=== PATIENT | female | born 1970 | race Caucasian/White ===

== ENCOUNTER → 2016-08-21 | Outpatient (CLI) | payer BC ==
--- NOTE | 2016-08-21 09:00 | US ---
EXAMINATION TYPE: US pelvic complete DATE OF EXAM: 08/21/2016 7:59 AM COMPARISON: No previous CLINICAL HISTORY: 45-year-old female with secondary Amenorrhea N91.1. Patient states she had a perio d in July after 14 months with no periods, 4, para 3, miscarriage 1, history of 3 c-secti ons TECHNIQUE: Transvaginal (TV) and Transabdominal (TA) scanning. Date of LMP: 07/26/2016 FINDINGS: Uterus: Anteverted measuring 7.8 x 3.9 x 4.1 cm. Myometrial heterogeneity and a focal anterior lobul ation along the body/lower uterine segment region measuring 1.7 x 1.4 x 1.9 cm. Endometrial Stripe: 0.9 cm, within normal limits. Right Ovary: 1.8 x 1.0 x 1.4 cm, within normal limits. Left Ovary: not seen No evident adnexal abnormality or cul-de-sac free fluid. IMPRESSION: 1. Myometrial heterogeneity could reflect diffuse small fibroid change or adenomyosis. 2. A 1.9 cm rounded area along the anterior uterine body/lower uterine segment suggestive of a partia lly intramural, partially subserosal fibroid. 3. Endometrial stripe measures 9 mm. 4. Left ovary could not be visualized.
== END ==
LOC: RADUSWWP 07:34
PROVIDERS: ATTEND Obstetrics & Gynecology
DX: R93.8 Abnormal findings on diagnostic imaging of other specified body structures (principal); N91.1 Secondary amenorrhea
CPT/HCPCS: 76830; 76856

== ENCOUNTER 2019-07-03 06:06 | Inpatient (IN) | payer BC ==
[2019-07-03] MEDS ORDERED: SODIUM CHLORIDE 0.9% 1,000 ML IV STA (06:20)
[2019-07-03] MEDS ORDERED: ACETAMINOPHEN TAB 500 MG TAB PO STA (06:30)
[2019-07-03] MEDS ORDERED: KETOROLAC 30 MG/ML 1 ML VIAL IVP STA (06:31)
--- NOTE | 2019-07-03 06:41 | ED ---
Abdominal Pain HPI - General Chief Complaint: Abdominal Pain Stated Complaint: Abd Pain Time Seen by Provider: 07/03/19 06:15 Source: patient, RN notes reviewed Mode of arrival: ambulatory Limitations: no limitations - History of Present Illness Initial Comments: 48-year-old female presents emergency Department chief complaint of lower abdominal pain. Patient states his surgeon has progressively worsened. Patient's had a fever has not taken any recent Tylenol Motrin. Patient denies any prior abdominal surgeries denies any dysuria or hematuria she's had slight nausea one episode of emesis. Patient denies any significant diarrhea consti pation. Patient has had no sick contacts. She denies any URI symptoms. - Related Data Allergies Allergy/AdvReac Type Severity Reaction Status Date / Time No Known Allergies Allergy Verified 07/03/19 06:19 Review of Systems ROS Statement: Those systems with pertinent positive or pertinent negative responses have been documented in the HPI. ROS Other: All systems not noted in ROS Statement are negative. Past Medical History Past Medical History: Thyroid Disorder History of Any Multi-Drug Resistant Organisms: None Reported Past Surgical History: Section Additional Past Surgical History / Comment(s): 3 C-Sections Past Psychological History: No Psychological Hx Reported Smoking Status: Never smoker Past Alcohol Use History: Occasional Past Drug Use History: None Reported General Exam Limitations: no limitations General appearance: alert, in no apparent distress Head exam: Present: atraumatic, normocephalic, normal inspection Eye exam: Present: normal appearance, PERRL, EOMI. Absent: scleral icterus, conjunctival injection, periorbital swelling ENT exam: Present: normal exam, normal oropharynx, mucous membranes moist Neck exam: Present: normal inspection, full ROM. Absent: tenderness, meningismus, lymphadenopathy Respiratory exam: Present: normal lung sounds bilaterally. Absent: respiratory distress, wheezes, rales, rhonchi, stridor Cardiovascular Exam: Present: normal rhythm, tachycardia, normal heart sounds. Absent: systolic murmur, diastolic murmur, rubs, gallop, clicks GI/Abdominal exam: Present: soft, tenderness (Moderate lower abdominal tenderness), normal bowel sounds. Absent: distended, guarding, rebound, rigid Back exam: Absent: CVA tenderness (R), CVA tenderness (L) Neurological exam: Present: alert, oriented X3 Skin exam: Present: warm, dry, intact, normal color. Absent: rash Course Vital Signs 07/03/19 07/03/19 07/03/19 06:16 06:31 06:46 Temperature 100.7 F H 103.2 F H 103.2 F H Pulse Rate 103 H 91 87 Respiratory 20 18 16 Rate Blood Pressure 113/75 116/78 124/84 O2 Sat by Pulse 97 100 100 Oximetry 07/03/19 07/03/19 07:01 07:38 Temperature 103.3 F H 102.1 F H Pulse Rate 99 103 H Respiratory 18 18 Rate Blood Pressure 128/84 121/80 O2 Sat by Pulse 98 100 Oximetry Medical Decision Making - Medical Decision Making I did receive a phone call from Dr. Rey who stated that there is evidence of acute appendicitis with concern of perforation and abscess formation. Patient does have leukocytosis, fever, lactic acidosis at this time patient was started on Zosyn for broad-spectrum antibiotics. Patient was given fluid hydration including fluid bolus, case discussed with Dr. Fox. Patient be taken to OR - Lab Data Result diagrams: 07/03/19 06:35 07/03/19 06:35 Lab Results 07/03/19 07/03/19 07/03/19 Range/Units 06:35 06:35 06:35 WBC 18.4 H (3.8-10.6) k/uL RBC 4.79 (3.80-5.40) m/uL Hgb 13.7 (11.4-16.0) gm/dL Hct 42.0 (34.0-46.0) % MCV 87.8 (80.0-100.0) fL MCH 28.5 (25.0-35.0) pg MCHC 32.5 (31.0-37.0) g/dL RDW 13.2 (11.5-15.5) % Plt Count 254 (150-450) k/uL Neutrophils % 92 % Lymphocytes % 3 % Monocytes % 4 % Eosinophils % 1 % Basophils % 0 % Neutrophils # 16.9 H (1.3-7.7) k/uL Lymphocytes # 0.5 L (1.0-4.8) k/uL Monocytes # 0.7 (0-1.0) k/uL Eosinophils # 0.2 (0-0.7) k/uL Basophils # 0.0 (0-0.2) k/uL Sodium 138 (137-145) mmol/L Potassium 3.8 (3.5-5.1) mmol/L Chloride 105 (98-107) mmol/L Carbon Dioxide 18 L (22-30) mmol/L Anion Gap 15 mmol/L BUN 15 (7-17) mg/dL Creatinine 0.80 (0.52-1.04) mg/dL Est GFR (CKD-EPI)AfAm >90 (>60 ml/min/1.73 sqM) Est GFR (CKD-EPI)NonAf 88 (>60 ml/min/1.73 sqM) Glucose 146 H (74-99) mg/dL Plasma Lactic Acid Sami (0.7-2.0) mmol/L Calcium 9.8 (8.4-10.2) mg/dL Total Bilirubin 1.9 H (0.2-1.3) mg/dL AST 38 H (14-36) U/L ALT 31 (4-34) U/L Alkaline Phosphatase 88 (38-126) U/L Total Protein 8.1 (6.3-8.2) g/dL Albumin 4.5 (3.5-5.0) g/dL Amylase 44 (30-110) U/L Lipase 85 (23-300) U/L Urine Color Urine Appearance (Clear) Urine pH (5.0-8.0) Ur Specific [place] (1.001-1.035) Urine Protein (Negative) Urine Glucose (UA) (Negative) Urine Ketones (Negative) Urine Blood (Negative) Urine Nitrite (Negative) Urine Bilirubin (Negative) Urine Urobilinogen (<2.0) mg/dL Ur Leukocyte Esterase (Negative) Urine RBC (0-5) /hpf Urine WBC (0-5) /hpf Ur Squamous Epith Cells (0-4) /hpf Amorphous Sediment (None) /hpf Urine Bacteria (None) /hpf Urine Mucus (None) /hpf Urine HCG, Qual Not Detected (Not Detectd) 07/03/19 07/03/19 Range/Units 06:35 06:35 WBC (3.8-10.6) k/uL RBC (3.80-5.40) m/uL Hgb (11.4-16.0) gm/dL Hct (34.0-46.0) % MCV (80.0-100.0) fL MCH (25.0-35.0) pg MCHC (31.0-37.0) g/dL RDW (11.5-15.5) % Plt Count (150-450) k/uL Neutrophils % % Lymphocytes % % Monocytes % % Eosinophils % % Basophils % % Neutrophils # (1.3-7.7) k/uL Lymphocytes # (1.0-4.8) k/uL Monocytes # (0-1.0) k/uL Eosinophils # (0-0.7) k/uL Basophils # (0-0.2) k/uL Sodium (137-145) mmol/L Potassium (3.5-5.1) mmol/L Chloride (98-107) mmol/L Carbon Dioxide (22-30) mmol/L Anion Gap mmol/L BUN (7-17) mg/dL Creatinine (0.52-1.04) mg/dL Est GFR (CKD-EPI)AfAm (>60 ml/min/1.73 sqM) Est GFR (CKD-EPI)NonAf (>60 ml/min/1.73 sqM) Glucose (74-99) mg/dL Plasma Lactic Acid Sami 2.2 H* (0.7-2.0) mmol/L Calcium (8.4-10.2) mg/dL Total Bilirubin (0.2-1.3) mg/dL AST (14-36) U/L ALT (4-34) U/L Alkaline Phosphatase (38-126) U/L Total Protein (6.3-8.2) g/dL Albumin (3.5-5.0) g/dL Amylase (30-110) U/L Lipase (23-300) U/L Urine Color Yellow Urine Appearance Cloudy H (Clear) Urine pH 5.5 (5.0-8.0) Ur Specific [place] 1.026 (1.001-1.035) Urine Protein 1+ H (Negative) Urine Glucose (UA) Negative (Negative) Urine Ketones 2+ H (Negative) Urine Blood Moderate H (Negative) Urine Nitrite Negative (Negative) Urine Bilirubin Negative (Negative) Urine Urobilinogen 3.0 (<2.0) mg/dL Ur Leukocyte Esterase Moderate H (Negative) Urine RBC 4 (0-5) /hpf Urine WBC 11 H (0-5) /hpf Ur Squamous Epith Cells 33 H (0-4) /hpf Amorphous Sediment Rare H (None) /hpf Urine Bacteria Rare H (None) /hpf Urine Mucus Moderate H (None) /hpf Urine HCG, Qual (Not Detectd) Disposition Clinical Impression: Acute appendicitis with rupture Disposition: ADMITTED IP TO THIS HOSP Condition: Fair Referrals: Celine Fox MD [Primary Care Provider] - 1-2 days
[2019-07-03 06:44] LABS: Basophils % (A) 0 %; Eosinophils # (A) 0.2 k/uL (0-0.7); Eosinophils % (A) 1 %; HGB 13.7 gm/dL (11.4-16.0); Lymphocytes # (A) 0.5 k/uL (1.0-4.8); Lymphocytes % (A) 3 %; MCH 28.5 pg (25.0-35.0); MCHC 32.5 g/dL (31.0-37.0); MCV 87.8 fL (80.0-100.0); Mean Platelet Volume 8.1; Monocytes # (A) 0.7 k/uL (0-1.0); Monocytes % (A) 4 %; Neutrophils # (A) 16.9 k/uL (1.3-7.7); Neutrophils % (A) 92 %; Platelet Count 254 k/uL (150-450); RBC 4.79 m/uL (3.80-5.40); RDW 13.2 % (11.5-15.5); WBC 18.4 k/uL (3.8-10.6)
[2019-07-03 06:57] LABS: Amorphous Sediment,Urine Rare /hpf; Appearance,Urine Cloudy (Clear); Bacteria,Urine Rare /hpf; Bilirubin,Urine Negative (Negative); Blood,Urine Moderate (Negative); Color,Urine Yellow; Glucose,Urine (UA) Negative (Negative); Ketones,Urine 2+ (Negative); Leukocyte Esterase,Urine Moderate (Negative); Mucus,Urine Moderate /hpf; Nitrite,Urine Negative (Negative); PH, Urine 5.5 (5.0-8.0); Protein,Urine 1+ (Negative); RBC,Urine 4 /hpf (0-5); Specific Gravity,Urine 1.026 (1.001-1.035); Squamous Epithelial Cell,Urine 33 /hpf (0-4); WBC,Urine 11 /hpf (0-5)
[2019-07-03 07:04] LABS: ALT 31 U/L (4-34); African American GFR (CKD) >90 (>60 ml/min/1.73 sqM); Albumin 4.5 g/dL (3.5-5.0); Amylase 44 U/L (30-110); Anion Gap 15 mmol/L; Blood Urea Nitrogen 15 mg/dL (7-17); Calcium 9.8 mg/dL (8.4-10.2); Carbon Dioxide 18 mmol/L (22-30); Chloride 105 mmol/L (98-107); Glucose 146 mg/dL (74-99); Non-African American GFR(CKD) 88 (>60 ml/min/1.73 sqM); Sodium 138 mmol/L (137-145); Total Bilirubin 1.9 mg/dL (0.2-1.3); Total Protein 8.1 g/dL (6.3-8.2)
[2019-07-03 07:07] LABS: AST 38 U/L (14-36); Alkaline Phosphatase 88 U/L (38-126); Potassium 3.8 mmol/L (3.5-5.1)
[2019-07-03] MEDS ORDERED: PIPERACILLIN-TAZOBACTAM 3.375 GM in SODIUM CHLORIDE 0.9% 100 ML IVPB STA (07:50)
--- NOTE | 2019-07-03 07:53 | CT ---
EXAMINATION TYPE: CT abdomen pelvis w con DATE OF EXAM: 07/03/2019 REFERENCE: NONE HISTORY: abdominal pain HISTORY: Lower abdominal pain CT DLP: 688.5 mGy Automated exposure control for dose reduction was used. TECHNIQUE: Helical acquisition through the abdomen and pelvis was obtained following the oral ingesti on of without Oral Contrast and following intravenous administration of 100 mL of Isovue 300. The eric a was reformatted in axial, coronal and sagittal projections. FINDINGS: There is minimal dependent atelectasis in the dependent portions of the lung bases. There is no pleural or pericardial fluid. The heart is not enlarged. There is a very small sliding hiatal hernia. Within the abdomen, the liver, spleen and gallbladder are unremarkable. Both adrenal glands are normal. 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 The kidneys are otherwise morphologically normal. The pancreas is unremarkable. There is no significant retroperitoneal, iliac or inguinal adenopathy. The uterus and ovaries are unremarkable. There is moderately fluid within the pelvis. There is some thickening of the sigmoid colon. Small col lection of fluid and an air-fluid level in the pelvic fluid collection on the right which I cannot pl tiago with certainty within the bowel. This may represent a developing abscess. The appendix appears th ickened measuring 9.1 mm. There is at least one droplet of air in the tip of the appendix which may o r may not be within the appendix itself. Small bowel loops are normal in caliber. IMPRESSION: I'M SUSPICIOUS THAT THERE IS ACUTE APPENDICITIS WITH RUPTURE THE APPENDIX AND EARLY ABSCESS FORMATION . PLEASE CORRELATE CLINICALLY. THIS REPORT WAS PHONED TO ANA GEE AT TIME OF REPORTING.
[2019-07-03] MEDS ORDERED: NALOXONE 0.4 MG/ML 1 ML VIAL IV PRN (07:57)
[2019-07-03] MEDS ORDERED: ONDANSETRON 4 MG/2 ML VIAL IVP PRN (07:57)
[2019-07-03] MEDS: SODIUM CHLORIDE 0.9% 1,000 ML IV SCH ×2 (08:05→18:45)
[2019-07-03] MEDS: MORPHINE SULFATE 4 MG/ML SYRINGE IV PRN ×3 (09:12→17:55)
--- NOTE | 2019-07-03 10:18 | P.GSHP ---
History of Present Illness H&P Date: 07/03/19 Chief Complaint: Acute appendicitis 48-year-old female presents to the hospital with increasing abdominal pain over the last 36 hours. This is been associated with fevers as well. Pain is diffuse however and exam more tender in the right lower quadrant. White blood cell count elevated. Fever of 103. Mildly tachycardic. CAT scan shows inflammatory changes adjacent to the appendix with air and fluid there as well suspicious for perforated acute appendicitis. Appetite is diminished. No change in bowel habits. No rectal bleeding or melena. - Review of Systems Comment: The patient denies any acute changes in vision or hearing, no dysphagia or odynophagia, no chest pain or shortness of breath, no dysuria or hematuria, no headache, no runny nose, no rectal bleeding or melena, no unexplained weight loss Past Medical History Past Medical History: Thyroid Disorder History of Any Multi-Drug Resistant Organisms: None Reported Past Surgical History: Section Additional Past Surgical History / Comment(s): 3 C-Sections Past Psychological History: No Psychological Hx Reported Smoking Status: Never smoker Past Alcohol Use History: Occasional Past Drug Use History: None Reported Medications and Allergies Home Medications Medication Instructions Recorded Confirmed Type Ibuprofen [Advil] 400 mg PO Q8HR PRN 07/03/19 07/03/19 History Levothyroxine Sodium [Synthroid] 100 mcg PO DAILY 07/03/19 07/03/19 History Allergies Allergy/AdvReac Type Severity Reaction Status Date / Time No Known Allergies Allergy Verified 07/03/19 08:48 Surgical - Exam Vital Signs Temp Pulse Resp BP Pulse Ox 100.7 F H 103 H 20 113/75 97 07/03/19 06:16 07/03/19 06:16 07/03/19 06:16 07/03/19 06:16 07/03/19 06:16 Physical exam: General: Well-developed, well-nourished, appears in mild distress from discomfort HEENT: Normocephalic, sclerae nonicteric Abdomen: Mildly distended, diffuse tenderness increased in the right lower quadrant with peritoneal signs Extremities: No edema Neuro: Alert and oriented Results - Labs 07/03/19 06:35 07/03/19 06:35 Abnormal Lab Results - Last 24 Hours (Table) 07/03/19 07/03/19 07/03/19 Range/Units 06:35 06:35 06:35 WBC 18.4 H (3.8-10.6) k/uL Neutrophils # 16.9 H (1.3-7.7) k/uL Lymphocytes # 0.5 L (1.0-4.8) k/uL Carbon Dioxide 18 L (22-30) mmol/L Glucose 146 H (74-99) mg/dL Plasma Lactic Acid Sami 2.2 H* (0.7-2.0) mmol/L Total Bilirubin 1.9 H (0.2-1.3) mg/dL AST 38 H (14-36) U/L Urine Appearance (Clear) Urine Protein (Negative) Urine Ketones (Negative) Urine Blood (Negative) Ur Leukocyte Esterase (Negative) Urine WBC (0-5) /hpf Ur Squamous Epith Cells (0-4) /hpf Amorphous Sediment (None) /hpf Urine Bacteria (None) /hpf Urine Mucus (None) /hpf 07/03/19 Range/Units 06:35 WBC (3.8-10.6) k/uL Neutrophils # (1.3-7.7) k/uL Lymphocytes # (1.0-4.8) k/uL Carbon Dioxide (22-30) mmol/L Glucose (74-99) mg/dL Plasma Lactic Acid Sami (0.7-2.0) mmol/L Total Bilirubin (0.2-1.3) mg/dL AST (14-36) U/L Urine Appearance Cloudy H (Clear) Urine Protein 1+ H (Negative) Urine Ketones 2+ H (Negative) Urine Blood Moderate H (Negative) Ur Leukocyte Esterase Moderate H (Negative) Urine WBC 11 H (0-5) /hpf Ur Squamous Epith Cells 33 H (0-4) /hpf Amorphous Sediment Rare H (None) /hpf Urine Bacteria Rare H (None) /hpf Urine Mucus Moderate H (None) /hpf Diabetes panel 07/03/19 Range/Units 06:35 Sodium 138 (137-145) mmol/L Potassium 3.8 (3.5-5.1) mmol/L Chloride 105 (98-107) mmol/L Carbon Dioxide 18 L (22-30) mmol/L BUN 15 (7-17) mg/dL Creatinine 0.80 (0.52-1.04) mg/dL Glucose 146 H (74-99) mg/dL Calcium 9.8 (8.4-10.2) mg/dL AST 38 H (14-36) U/L ALT 31 (4-34) U/L Alkaline Phosphatase 88 (38-126) U/L Total Protein 8.1 (6.3-8.2) g/dL Albumin 4.5 (3.5-5.0) g/dL Calcium panel 07/03/19 Range/Units 06:35 Calcium 9.8 (8.4-10.2) mg/dL Albumin 4.5 (3.5-5.0) g/dL Pituitary panel 07/03/19 Range/Units 06:35 Sodium 138 (137-145) mmol/L Potassium 3.8 (3.5-5.1) mmol/L Chloride 105 (98-107) mmol/L Carbon Dioxide 18 L (22-30) mmol/L BUN 15 (7-17) mg/dL Creatinine 0.80 (0.52-1.04) mg/dL Glucose 146 H (74-99) mg/dL Calcium 9.8 (8.4-10.2) mg/dL Adrenal panel 07/03/19 Range/Units 06:35 Sodium 138 (137-145) mmol/L Potassium 3.8 (3.5-5.1) mmol/L Chloride 105 (98-107) mmol/L Carbon Dioxide 18 L (22-30) mmol/L BUN 15 (7-17) mg/dL Creatinine 0.80 (0.52-1.04) mg/dL Glucose 146 H (74-99) mg/dL Calcium 9.8 (8.4-10.2) mg/dL Total Bilirubin 1.9 H (0.2-1.3) mg/dL AST 38 H (14-36) U/L ALT 31 (4-34) U/L Alkaline Phosphatase 88 (38-126) U/L Total Protein 8.1 (6.3-8.2) g/dL Albumin 4.5 (3.5-5.0) g/dL Assessment and Plan (1) Acute appendicitis with rupture Narrative/Plan: Medical services discussed in detail with the patient and her . We'll proceed with laparoscopic appendectomy, possible open appendectomy. Risks of bleeding, infection, leak, abscess, conversion to an open procedure, need for bowel resection, bladder bowel and ureteral injury, hernia reviewed. They understand and wish to proceed. Current Visit: Yes Status: Acute Code(s): K35.32 - ACUTE APPENDICITIS WITH PERF AND LOC PERITONITIS, W/O ABSCS SNOMED Code(s): 43787428
[2019-07-03] MEDS ORDERED: DEXAMETHASONE SOD PHOS (MDV) 100 MG/10 ML VIAL ONE (10:31)
[2019-07-03] MEDS ORDERED: ROCURONIUM BROMIDE 10 MG/ML 10 ML VIAL IV ONE (10:31)
[2019-07-03] MEDS ORDERED: HEPARIN SODIUM,PORCINE 5,000 UNIT/ML 1 ML VIAL ONE (10:31)
[2019-07-03] MEDS ORDERED: PROPOFOL 10 MG/ML 20 ML VIAL IV ONE (10:31)
[2019-07-03] MEDS ORDERED: MIDAZOLAM 2 MG/2 ML VIAL ONE (10:31)
[2019-07-03] MEDS ORDERED: fentaNYL (PF) 50 MCG/ML 2 ML AMP ONE (10:31)
[2019-07-03] MEDS ORDERED: LIDOCAINE 1% INJ 10MG/ML (20 ML MDV) ONE (10:31)
[2019-07-03] MEDS ORDERED: GLYCOPYRROLATE 0.2 MG/ML 2 ML VIAL ONE (10:31)
[2019-07-03] MEDS ORDERED: NEOSTIGMINE 1 MG/ML 10 ML VIAL ONE (10:31)
[2019-07-03] MEDS ORDERED: SUCCINYLCHOLINE CHLORIDE 100 MG/5 ML SYR IV ONE (10:31)
[2019-07-03] MEDS ORDERED: LACTATED RINGERS 1,000 ML IV ONE (10:33)
[2019-07-03] MEDS ORDERED: ceFAZolin 1,000 MG VIAL IVPB ONE (10:49)
[2019-07-03] MEDS ORDERED: BUPIVACAINE (PF) 0.25% 30 ML VIAL SQ ONE ×2 (11:01→11:38)
[2019-07-03] MEDS ORDERED: HYDROmorphone 1 MG/ML 1 ML SYRINGE IVP PRN (12:26)
--- NOTE | 2019-07-03 12:32 | P.OP ---
Date of Procedure: 07/03/19 Procedure(s) Performed: PREOPERATIVE DIAGNOSIS: Ruptured appendicitis POSTOPERATIVE DIAGNOSIS: Same with peritonitis generalized PROCEDURE: Laparoscopic appendectomy SURGEON: Ruddy EBL: 5 mL ANESTHESIA: General COMPLICATIONS: None OPERATIVE PROCEDURE: The patient was brought and placed on the operating table in the supine position. The patient was placed under general anesthesia. The abdomen was prepped and draped in the usual sterile fashion. A small vertical infraumbilical incision was made. The fascia was retracted anteriorly with [place] forceps. The Veress needle was advanced into the peritoneal cavity. The saline drop test was normal. Insufflation took place to 15 mmHg. A 5 mm trocar was then placed. An additional 5 mm suprapubic trocar was placed under direct visualization as well as a 12 mm left lower quadrant trocar under direct visualization. The patient had evidence of diffuse peritonitis with inflammatory changes of the serosa of the small bowel in all 4 quadrants. There was pus present in all 4 quadrants. As we inspected the pelvis I noted that the terminal ileum was adherent to the right pelvic sidewall. Using careful blunt dissection we were able to bring the terminal ileum cecum and appendix into view by retracted superiorly. The appendix was easily identified at that time. The appendix had a perforation 1 cm from the junction to the cecum. A small amount of stool was seen emanating from this opening which was suctioned out. Thankfully the base of the appendix itself was quite viable. The base of the appendix was divided using a linear 45 mm intestinal stapler. The mesentery itself was was then divided using the LigaSure device. The entire abdomen was copiously irrigated with 2 L of saline. No further purulence was seen. A drain was placed in the right hemipelvis extending to the right lower quadrant. This was brought out through the 5 mm suprapubic trocar site. This is sutured to the skin using a 3-0 silk stitch. The appendix was removed using an Endo Catch bag. The fascia at the 12 mm site was closed using a Bony-Alysha [id number] 0 Vicryl stitch. The skin at both trocar sites was closed using 4-0 Monocryl sutures. Skin glue was then applied. DISPOSITION: Stable to recovery room
[2019-07-03] MEDS ORDERED: SODIUM CHLORIDE 0.9% 1,000 ML IV ONE (12:45)
[2019-07-03] MEDS: HEPARIN SODIUM,PORCINE 5,000 UNIT/ML 1 ML VIAL SQ SCH ×2 (13:32→17:18)
[2019-07-03] MEDS: KETOROLAC 30 MG/ML 1 ML VIAL IVP SCH ×2 (13:32→17:19)
[2019-07-03] MEDS: AMPICILLIN-SULBACTAM 3 GM in SODIUM CHLORIDE 0.9% 100 ML IVPB SCH ×2 (15:00→17:56)
--- NOTE | 2019-07-03 23:54 | P.CONS ---
History of Present Illness - Reason for Consult Consult date: 07/03/19 ruptured appendicitis Requesting physician: Og Fox - Chief Complaint abdominal pain x 2 days - History of Present Illness Patient is 48-year female presenting to the ER at [facility] today with a chief complaints of abdominal pain that has been going on for a day and a half patient pain is generalized more of a dull aching to sharp intensity almost 10 out of 10 in severity with associated nausea no significant vomiting or any diarrhea and also fever with chills with the symptom the patient was evaluated by the ER physician on arrival to the ER the patient did have a fever of 103 F patient was tachycardic and did have elevated white count 15.4 lactic acid was 2.2 urine was not significantly positive patient did have a CT of abdominal pelvis we did shows inflammation around the appendix area patient subsequently was taken to the OR and she was noticed to have ruptured appendicitis with diffuse peritonitis patient is status post laparoscopic appendectomy infectious disease was consulted for further recommendation about antibiotic therapy. Review of Systems Positive point has been mentioned in HPI rest of the systems are negative Past Medical History Past Medical History: Thyroid Disorder History of Any Multi-Drug Resistant Organisms: None Reported Past Surgical History: Section Additional Past Surgical History / Comment(s): 3 C-Sections Past Anesthesia/Blood Transfusion Reactions: No Reported Reaction Past Psychological History: No Psychological Hx Reported Smoking Status: Never smoker Past Alcohol Use History: Occasional Past Drug Use History: None Reported - Past Family History Mother Family Medical History: Cancer, Musculoskeletal Disorder Additional Family Medical History / Comment(s): breast CA Medications and Allergies Home Medications Medication Instructions Recorded Confirmed Type Ibuprofen [Advil] 400 mg PO Q8HR PRN 07/03/19 07/03/19 History Levothyroxine Sodium [Synthroid] 100 mcg PO DAILY 07/03/19 07/03/19 History Allergies Allergy/AdvReac Type Severity Reaction Status Date / Time No Known Allergies Allergy Verified 07/03/19 08:48 Physical Exam Vitals: Vital Signs Temp Pulse Pulse Resp BP BP Pulse Ox 07/03/19 20:20 98.7 F 103 H 16 99/64 94 L 07/03/19 16:44 99 108/71 95 07/03/19 14:37 94 104/70 95 07/03/19 14:22 92 106/70 94 L 07/03/19 14:07 100 107/68 94 L 07/03/19 13:52 100 107/71 94 L 07/03/19 13:42 100.3 F H 101 H 14 105/68 93 L 07/03/19 12:35 99 16 100/58 93 L 07/03/19 12:20 95 14 94/60 95 07/03/19 12:05 92 15 101/62 99 07/03/19 11:50 99.8 F H 90 14 95/61 100 07/03/19 09:39 102 H 18 122/84 99 07/03/19 08:51 98.9 F 92 18 120/81 99 07/03/19 07:38 102.1 F H 103 H 18 121/80 100 07/03/19 07:01 103.3 F H 99 18 128/84 98 07/03/19 06:46 103.2 F H 87 16 124/84 100 07/03/19 06:31 103.2 F H 91 18 116/78 100 07/03/19 06:16 100.7 F H 103 H 20 113/75 97 Intake and Output 07/03/19 07/03/19 07/04/19 14:59 22:59 06:59 Intake Total 1050 Output Total 5 45 Balance 1045 -45 Intake: IV 1050 Output: Drainage 45 Abdomen 45 Estimated Blood Loss 5 Other: Weight 64.864 kg GENERAL DESCRIPTION: Middle-aged female lying in bed, no distress. No tachypnea or accessory muscle of respiration use. HEENT: Shows Pallor , no scleral icterus. Oral mucous membrane is dry. NECK: Trachea central, no thyromegaly. LUNGS: Unlabored breathing. Clear to auscultation anteriorly. No wheeze or crackle. HEART: S1, S2, regular rate and rhythm. ABDOMEN: Soft, mild right-sided tenderness , no guarding or rigidity EXTREMITIES: No edema of feet. SKIN: No rash, no masses palpable. NEUROLOGICAL: The patient is awake, alert, oriented x3, mood and affect normal. Results CBC & Chem 7: 07/03/19 06:35 07/03/19 06:35 Labs: Abnormal Lab Results - Last 24 Hours (Table) 07/03/19 07/03/19 07/03/19 Range/Units 06:35 06:35 06:35 WBC 18.4 H (3.8-10.6) k/uL Neutrophils # 16.9 H (1.3-7.7) k/uL Lymphocytes # 0.5 L (1.0-4.8) k/uL Carbon Dioxide 18 L (22-30) mmol/L Glucose 146 H (74-99) mg/dL Plasma Lactic Acid Sami 2.2 H* (0.7-2.0) mmol/L Total Bilirubin 1.9 H (0.2-1.3) mg/dL AST 38 H (14-36) U/L Urine Appearance (Clear) Urine Protein (Negative) Urine Ketones (Negative) Urine Blood (Negative) Ur Leukocyte Esterase (Negative) Urine WBC (0-5) /hpf Ur Squamous Epith Cells (0-4) /hpf Amorphous Sediment (None) /hpf Urine Bacteria (None) /hpf Urine Mucus (None) /hpf 07/03/19 Range/Units 06:35 WBC (3.8-10.6) k/uL Neutrophils # (1.3-7.7) k/uL Lymphocytes # (1.0-4.8) k/uL Carbon Dioxide (22-30) mmol/L Glucose (74-99) mg/dL Plasma Lactic Acid Sami (0.7-2.0) mmol/L Total Bilirubin (0.2-1.3) mg/dL AST (14-36) U/L Urine Appearance Cloudy H (Clear) Urine Protein 1+ H (Negative) Urine Ketones 2+ H (Negative) Urine Blood Moderate H (Negative) Ur Leukocyte Esterase Moderate H (Negative) Urine WBC 11 H (0-5) /hpf Ur Squamous Epith Cells 33 H (0-4) /hpf Amorphous Sediment Rare H (None) /hpf Urine Bacteria Rare H (None) /hpf Urine Mucus Moderate H (None) /hpf Microbiology - Last 24 Hours (Table) 07/03/19 06:35 Urine Culture - Preliminary Urine,Voided Assessment and Plan Assessment: patient admitted hospital with sepsis this patient noted a fever tachycardia e levated white count-source is acute ruptured appendicitis with a component of second peritonitis will need to cover for enteric gram-negative both aerobes and anaerobes in this patient with no history of recent antibiotic exposure more likely will be dealing with the sensitive gram-negative pathogen such as E. coli and related gerson (1) Sepsis Current Visit: Yes Status: Acute Code(s): A41.9 - SEPSIS, UNSPECIFIED ORGANISM SNOMED Code(s): 30666709 (2) Acute appendicitis with rupture Current Visit: Yes Status: Acute Code(s): K35.32 - ACUTE APPENDICITIS WITH PERF AND LOC PERITONITIS, W/O ABSCS SNOMED Code(s): 95742209 Plan: 1-Unasyn 3 g every 6 hours 2-gentle IV fluid We will follow on clinical condition and cultures to further adjust medication if needed Thank you for this consultation we will follow the patient along with you Time with Patient: Greater than 30
[2019-07-04] MEDS: KETOROLAC 30 MG/ML 1 ML VIAL IVP SCH ×4 (00:33→17:30)
[2019-07-04] MEDS: HEPARIN SODIUM,PORCINE 5,000 UNIT/ML 1 ML VIAL SQ SCH ×3 (00:34→17:32)
[2019-07-04] MEDS: SODIUM CHLORIDE 0.9% 1,000 ML IV SCH ×3 (00:34→23:56)
[2019-07-04] MEDS: AMPICILLIN-SULBACTAM 3 GM in SODIUM CHLORIDE 0.9% 100 ML IVPB SCH ×4 (01:30→17:32)
[2019-07-04] MEDS: LEVOTHYROXINE 100 MCG TAB PO SCH (05:47)
[2019-07-04 06:44] LABS: Basophils % (A) 0 %; Eosinophils % (A) 0 %; HGB 10.9 gm/dL (11.4-16.0); Lymphocytes # (A) 0.7 k/uL (1.0-4.8); Lymphocytes % (A) 6 %; MCH 28.5 pg (25.0-35.0); MCV 89.3 fL (80.0-100.0); Mean Platelet Volume 8.7; Monocytes # (A) 0.5 k/uL (0-1.0); Monocytes % (A) 4 %; Neutrophils # (A) 10.3 k/uL (1.3-7.7); Neutrophils % (A) 89 %; Platelet Count 201 k/uL (150-450); RDW 13.2 % (11.5-15.5); WBC 11.6 k/uL (3.8-10.6)
[2019-07-04] MEDS: MORPHINE SULFATE 4 MG/ML SYRINGE IV PRN ×2 (07:17→16:21)
--- NOTE | 2019-07-04 10:17 | P.PN ---
Subjective Progress Note Date: 07/04/19 Principal diagnosis: Acute appendicitis with perforation and generalized peritonitis Patient did fairly well overnight. T-max 100.3. Pain is down to about a 4-5 out of 10. White blood cell count 11.6. Lactic acid normalized. Objective - Vital Signs Vital signs: Vital Signs Temp 98.5 F 07/04/19 07:00 Pulse 92 07/04/19 07:00 Resp 17 07/04/19 07:00 BP 97/60 07/04/19 07:00 Pulse Ox 98 07/04/19 07:00 Intake & Output 07/03/19 07/04/19 07/04/19 18:59 06:59 18:59 Intake Total 1050 1180 Output Total 50 Balance 1000 1180 Weight 64.864 kg Intake: IV 1050 Oral 1180 Output: Drainage 45 Abdomen 45 Estimated Blood Loss 5 Other: # Voids 2 - Exam Abdomen: Soft, mild distention, mild tenderness diffusely, VAIBHAV drain seropurulent - Labs CBC & Chem 7: 07/04/19 06:15 07/03/19 06:35 Labs: Abnormal Lab Results - Last 24 Hours (Table) 07/04/19 Range/Units 06:15 WBC 11.6 H (3.8-10.6) k/uL Hgb 10.9 L (11.4-16.0) gm/dL Neutrophils # 10.3 H (1.3-7.7) k/uL Lymphocytes # 0.7 L (1.0-4.8) k/uL Microbiology - Last 24 Hours (Table) 07/03/19 06:35 Blood Culture - Preliminary Blood No Growth after 24 hours 07/03/19 06:35 Urine Culture - Preliminary Urine,Voided Assessment and Plan (1) Acute appendicitis with rupture Narrative/Plan: Continue antibiotics per infectious disease. Ambulate. Gradually advance diet. Keep drain in place. Current Visit: Yes Status: Acute Code(s): K35.32 - ACUTE APPENDICITIS WITH PERF AND LOC PERITONITIS, W/O ABSCS SNOMED Code(s): 11028183
[2019-07-04] MEDS: HYDROcodone/APAP 5-325MG 1 EACH TAB PO PRN (20:40)
--- NOTE | 2019-07-04 20:55 | PN ---
PROGRESS NOTE DATE OF SERVICE: 07/04/2019. REASON FOR FOLLOWUP: Acute perforated appendicitis with secondary peritonitis. INTERVAL HISTORY: The patient is currently afebrile. Patient has been breathing comfortably. The patient denies having any chest pain, shortness of breath or cough. Abdominal pain is currently improved. Tolerating full liquid diet. No nausea, vomiting. No diarrhea. Rather the patient has had no bowel movement. PHYSICAL EXAMINATION: Blood pressure is 97/60 with a pulse of 92, temperature 98.5. She is 98% on room air. General description is a middle-aged female, lying in bed in no distress. Respiratory system: Unlabored breathing. Clear to auscultation anteriorly. Heart S1, S2 regular rate and rhythm. ABDOMEN: Soft, no tenderness. EXTREMITIES: No edema of the feet. LABS: Hemoglobin is 10.2, white count 11.6, creatinine 0.8. Blood culture has been negative. DIAGNOSTIC IMPRESSION/PLAN: Patient with admitted to the Hospital with abdominal pain in this patient who did have a component of secondary peritonitis from perforated appendicitis. Patient is currently covered with Unasyn; to continue. White count showed a downward trend and we will monitor clinical course closely. Family at the bedside. Questions were answered. MMODL / IJN: [id number] /
[2019-07-05] MEDS: AMPICILLIN-SULBACTAM 3 GM in SODIUM CHLORIDE 0.9% 100 ML IVPB SCH ×5 (00:01→23:44)
[2019-07-05] MEDS: KETOROLAC 30 MG/ML 1 ML VIAL IVP SCH ×2 (00:02→06:20)
[2019-07-05] MEDS: HEPARIN SODIUM,PORCINE 5,000 UNIT/ML 1 ML VIAL SQ SCH ×4 (00:02→23:43)
[2019-07-05] MEDS: LEVOTHYROXINE 100 MCG TAB PO SCH (06:26)
[2019-07-05] MEDS: SODIUM CHLORIDE 0.9% 1,000 ML IV SCH ×2 (08:56→19:50)
[2019-07-05 10:59] LABS: Basophils % (A) 0 %; Eosinophils # (A) 0.1 k/uL (0-0.7); Eosinophils % (A) 1 %; HCT 31.5 % (34.0-46.0); Lymphocytes # (A) 0.6 k/uL (1.0-4.8); Lymphocytes % (A) 9 %; MCH 28.3 pg (25.0-35.0); MCHC 31.7 g/dL (31.0-37.0); MCV 89.3 fL (80.0-100.0); Mean Platelet Volume 8.8; Monocytes # (A) 0.4 k/uL (0-1.0); Monocytes % (A) 6 %; Neutrophils # (A) 5.6 k/uL (1.3-7.7); Neutrophils % (A) 83 %; Platelet Count 185 k/uL (150-450); RBC 3.52 m/uL (3.80-5.40); WBC 6.7 k/uL (3.8-10.6)
[2019-07-05] MEDS: HYDROcodone/APAP 5-325MG 1 EACH TAB PO PRN (11:13)
--- NOTE | 2019-07-05 12:24 | P.PN ---
<Nichol Abreu Gadiel - Last Filed: 07/05/19 12:17> Subjective Progress Note Date: 07/05/19 CHIEF COMPLAINT: abdominal pain HISTORY OF PRESENT ILLNESS: patient is status post laparoscopic appendectomy secondary to ruptured appendicitis with peritonitis. Postop day #2. Patient examined this morning at the bedside. She reports eating eggs this morning and experienced increased abdominal pain afterwards. She denies nausea or vomiting. She has been passing flatus. Denies having a bowel movement. She has been ambulating in the hallway. WBC 6.7 PHYSICAL EXAM: VITAL SIGNS: Reviewed. GENERAL: Well-developed in no acute distress. HEENT: No sclera icterus. Extraocular movements grossly intact. Moist buccal mucosa. Head is atraumatic, normocephalic. ABDOMEN: Soft. Nondistended. Appropriate surgical tenderness. VAIBHAV to left lower quadrant with seropurulent drainage. NEUROLOGIC: Alert and oriented. Cranial nerves II through XII grossly intact. ASSESSMENT: 1. Ruptured appendicitis with peritonitis PLAN: 1. Continue IV antibiotics. Dr. Riley following 2. Pain control 3. Incentive spirometer 4. Activity as tolerated 5. Patient with increased pain this morning. Will re-evaluate patient this afternoon. Likely discharge home tomorrow. Nurse practitioner note has been reviewed by physician. Signing provider agrees with the documented findings, assessment, and plan of care. Objective - Vital Signs Vital signs: Vital Signs Temp 98.3 F 07/05/19 07:00 Pulse 90 07/05/19 07:00 Resp 12 07/05/19 07:00 BP 130/83 07/05/19 07:00 Pulse Ox 99 07/05/19 07:00 Intake & Output 07/04/19 07/05/19 07/05/19 18:59 06:59 18:59 Intake Total 40 Output Total 25 30 Balance -25 40 -30 Intake: Oral 40 Output: Drainage 25 30 Abdomen 25 30 Other: Voiding Method Toilet # Voids 2 1 - Labs CBC & Chem 7: 07/05/19 10:41 07/03/19 06:35 Labs: Abnormal Lab Results - Last 24 Hours (Table) 07/05/19 Range/Units 10:41 RBC 3.52 L (3.80-5.40) m/uL Hgb 10.0 L (11.4-16.0) gm/dL Hct 31.5 L (34.0-46.0) % Lymphocytes # 0.6 L (1.0-4.8) k/uL Microbiology - Last 24 Hours (Table) 07/03/19 06:35 Blood Culture - Preliminary Blood No Growth after 48 hours 07/03/19 06:35 Urine Culture - Final Urine,Voided <Og Fox - Last Filed: 07/05/19 16:58> Subjective As above. Patient doing well. Did have a fever of 100.5 last night. Was feeling nauseated this morning. Pain is improved. VAIBHAV more serious. Plan discharge in a.m. if afebrile. Increase diet. Objective - Vital Signs Vital signs: Vital Signs Temp 98.4 F 07/05/19 15:00 Pulse 69 07/05/19 15:00 Resp 12 07/05/19 15:00 BP 117/77 07/05/19 15:00 Pulse Ox 90 L 07/05/19 15:00 Intake & Output 07/04/19 07/05/19 07/05/19 18:59 06:59 18:59 Intake Total 40 500 Output Total 25 70 Balance -25 40 430 Intake: Oral 40 500 Output: Drainage 25 70 Abdomen 25 70 Other: Voiding Method Toilet # Voids 2 1 2 - Labs CBC & Chem 7: 07/05/19 10:41 07/03/19 06:35 Labs: Abnormal Lab Results - Last 24 Hours (Table) 07/05/19 Range/Units 10:41 RBC 3.52 L (3.80-5.40) m/uL Hgb 10.0 L (11.4-16.0) gm/dL Hct 31.5 L (34.0-46.0) % Lymphocytes # 0.6 L (1.0-4.8) k/uL Microbiology - Last 24 Hours (Table) 07/03/19 06:35 Blood Culture - Preliminary Blood No Growth after 48 hours Assessment and Plan (1) Acute appendicitis with rupture Current Visit: Yes Status: Acute Code(s): K35.32 - ACUTE APPENDICITIS WITH PERF AND LOC PERITONITIS, W/O ABSCS SNOMED Code(s): 12097369
--- NOTE | 2019-07-05 13:39 | CDI ---
Documentation Clarification Form Date: 07/05/2019 CDS: Chanel Nichole, CCS, CCDS Admit Date: 07/03/2019 Patient Name: Steff Kerr Discharge Date: ATTENTION: The Clinical Documentation Specialists (CDI) and [facility] Coding Staff appreciate your assistance in clarifying documentation. Please respond to the clarification below the line at the bottom and electronically sign. The CDI & [facility] Coding staff will review the response and follow-up if needed. Please note: Queries are made part of the Legal Health Record. If you have any questions, please contact the author of this message via ITS. Dear Dr. Og Fox: The patient presented with the following: right lower quadrant abdominal pain, diagnosed with acute ruptured appendicitis & generalized peritonitis. History/Risk Factors: Hypothyroidism, previous C Section Clinical Indicators: Presented as above. Per the Infectious Disease consult: Sepsis is documented. VS: T 100.7^-103.2^, P 103^, R 20, BP 113/75, PO 97 RA LAB: WBC 18.4^, Neut 16.9^, Lactic Acid 2.2^^ UA: cloudy, 1+ prot, 2+ ket, moderate blood, moderate esterase, WBC 11^. Treatment: IV fluid boluses, IV Toradol, IV Zosyn, IV Ms, IV Zofran, IV fluid rate 100, IV Cefazolin, IV Dilaudid, IV Ampicillin In your professional opinion, please clarify if these findings signify one of the following conditions, whether the condition is POA, and cause, if known: Sepsis ruled out Sepsis ruled in: Yes Other, please specify Unable to determine Present on Admission Yes (Last Revision: September 2017) MTDD
[2019-07-05] MEDS ORDERED: ACETAMINOPHEN TAB 325 MG TAB PO PRN (19:39)
--- NOTE | 2019-07-05 22:25 | PN ---
PROGRESS NOTE DATE OF SERVICE: 07/05/2019 REASON FOR FOLLOWUP: Ruptured appendicitis with secondary peritonitis. INTERVAL HISTORY: The patient did spike a fever last night of 100.6 to 100.4. The patient has been afebrile since then. The patient overall is feeling better, breathing comfortably. No nausea, no vomiting. No chest pain, shortness of breath or cough. Abdominal pain is currently controlled. She has been passing gas but did not have any bowel movement. PHYSICAL EXAMINATION: Blood pressure is 117/77 with a pulse of 69, temperature 98.4. She is 98% on room air. General description is a middle-aged female lying in bed in no distress. RESPIRATORY SYSTEM: Unlabored breathing. Clear to auscultation anteriorly. HEART: S1, S2. Regular rate and rhythm. ABDOMEN: Soft. Minimally tender. No guarding or rigidity. EXTREMITIES: No edema of the feet. LABS: Hemoglobin is 10, white count 6.7. Blood culture has been negative. DIAGNOSTIC IMPRESSION AND PLAN: Patient with secondary peritonitis from perforated appendicitis, status post laparoscopic appendectomy. The patient did have a low-grade fever last night; however, that has resolved. The patient is currently covered with Unasyn; to continue. If the patient remains afebrile and oral intake is improved, to finish therapy with oral Augmentin and monitor clinical course closely. MMODL / IJN: [id number] /
[2019-07-06 01:10] VITALS: TEMP 98.4
[2019-07-06] MEDS: AMPICILLIN-SULBACTAM 3 GM in SODIUM CHLORIDE 0.9% 100 ML IVPB SCH (05:37)
[2019-07-06] MEDS: SODIUM CHLORIDE 0.9% 1,000 ML IV SCH (05:37)
[2019-07-06] MEDS: LEVOTHYROXINE 100 MCG TAB PO SCH (05:37)
[2019-07-06 07:45] LABS: Basophils % (A) 1 %; Eosinophils # (A) 0.1 k/uL (0-0.7); Eosinophils % (A) 2 %; HCT 30.4 % (34.0-46.0); HGB 9.8 gm/dL (11.4-16.0); Lymphocytes # (A) 0.6 k/uL (1.0-4.8); Lymphocytes % (A) 10 %; MCH 28.8 pg (25.0-35.0); MCHC 32.3 g/dL (31.0-37.0); MCV 89.1 fL (80.0-100.0); Mean Platelet Volume 8.8; Monocytes # (A) 0.4 k/uL (0-1.0); Monocytes % (A) 7 %; Neutrophils # (A) 4.9 k/uL (1.3-7.7); Neutrophils % (A) 79 %; Platelet Count 212 k/uL (150-450); RBC 3.41 m/uL (3.80-5.40); WBC 6.2 k/uL (3.8-10.6)
[2019-07-06 08:04] VITALS: BP 128/77; PULSE 77; RESP 16
[2019-07-06] MEDS: HEPARIN SODIUM,PORCINE 5,000 UNIT/ML 1 ML VIAL SQ SCH (08:13)
--- NOTE | 2019-07-06 11:13 | P.DS ---
Providers Date of admission: 07/03/19 08:00 Expected date of discharge: 07/06/19 Attending physician: Og Fox Consults: 07/03/19 12:26 Consult Physician Routine Consulting Provider: Jai Riley Consult Reason/Comments: Ruptured appendicitis with peritonitis Do you want consulting provider notified?: Yes Primary care physician: Celine Fox Hospital Course: 48-year-old who presented to the emergency room with abdominal pain. Patient was found to have acute appendicitis. She underwent laparoscopic appendectomy secondary to ruptured appendicitis with peritonitis. Patient is doing well postoperatively without any immediate complications. She is tolerating diet without nausea or vomiting. Pain is controlled on oral medications. WBC is within normal limits. She was evaluated by infectious disease during hospitalization. VAIBHAV drain discontinued prior to discharge. She was deemed stable for discharge home today on oral antibiotics per infectious disease recommendations. Please see EMR for further hospital course he tells. DC Diagnosis 1. Acute ruptured appendicitis with peritonitis Nurse practitioner note has been reviewed by physician. Signing provider agrees with the documented findings, assessment, and plan of care. Patient Condition at Discharge: Stable Plan - Discharge Summary Discharge Rx Participant: No New Discharge Prescriptions: New Hydrocodone/Acetaminophen [Dexter 5-325] 1 tab PO Q6HR PRN 3 Days #12 tab PRN Reason: Pain Amoxic-Pot Clav 875-125Mg [Augmentin 875-125] 1 tab PO Q12HR #20 tablet No Action Levothyroxine Sodium [Synthroid] 100 mcg PO DAILY Ibuprofen [Advil] 400 mg PO Q8HR PRN PRN Reason: Pain Discharge Medication List Ibuprofen [Advil] 400 mg PO Q8HR PRN 07/03/19 [History] Levothyroxine Sodium [Synthroid] 100 mcg PO DAILY 07/03/19 [History] Amoxic-Pot Clav 875-125Mg [Augmentin 875-125] 1 tab PO Q12HR #20 tablet 07/06/19 [Rx] Hydrocodone/Acetaminophen [Dexter 5-325] 1 tab PO Q6HR PRN 3 Days #12 tab 07/06/19 [Rx] Follow up Appointment(s)/Referral(s): Og Fox MD [Medical Doctor] - 1 Week Celine Fox MD [Primary Care Provider] - 1-2 days Jai Riley MD [STAFF PHYSICIAN] - 1 Week Activity/Diet/Wound Care/Special Instructions: No driving while taking Dexter No lifting over 10 pounds You may shower. No soaking or tub baths Very light activity until you are reevaluated at your follow up appointment with your surgeon
--- NOTE | 2019-07-07 06:19 | PN ---
PROGRESS NOTE DATE OF SERVICE: 07/06/2019 REASON FOR FOLLOWUP: Secondary peritonitis from perforated appendicitis. INTERVAL HISTORY: The patient was seen on rounds this morning. The patient has been afebrile, breathing comfortably. Denies having any chest pain, shortness of breath, or cough. No nausea, no vomiting. Abdominal pain has improved. Did have bowel movement. PHYSICAL EXAMINATION: Blood pressure is 128/77 with a pulse of 77, temperature 98.4. She is 98% on room air. General description is a middle-aged female up in the bed in no distress. RESPIRATORY SYSTEM: Unlabored breathing. Clear to auscultation anteriorly. HEART: S1, S2. Regular rate and rhythm. ABDOMEN: Soft, tenderness. LABS: Hemoglobin 9.8, white count 6.2. Blood culture has been negative. DIAGNOSTIC IMPRESSION AND PLAN: Patient with secondary peritonitis from perforated appendicitis, status post laparoscopic appendectomy. The patient has shown overall clinical improvement. She will finish therapy with oral Augmentin 875 mg b.i.d. times 10 days. Prescription was sent to the pharmacy. MMODL / IJN: [id number] /
== END 2019-07-06 11:51 | disposition home or self-care (01) | DRG 854 ==
LOC: EC 06:06 → 4SSUR 08:00
PROVIDERS: ADMIT Surgery; ATTEND Surgery
PROC: 0DTJ4ZZ Resection of Appendix, Percutaneous Endoscopic Approach (ICD-10-PCS; principal; 2019-07-03 11:00)
DX: A41.9 Sepsis, unspecified organism (principal); K35.20 Acute appendicitis with generalized peritonitis, without abscess; E87.2 Acidosis; Z79.890 Hormone replacement therapy; Z80.3 Family history of malignant neoplasm of breast; E07.9 Disorder of thyroid, unspecified
CPT/HCPCS: 36415; 74177; 80053; 81001; 81025; 82150; 83605; 83690; 85025; 87040; 87086; 88304; 96361; 96365; 96375; 99285

== ENCOUNTER → 2020-07-26 | Outpatient (CLI) | payer BC ==
--- NOTE | 2020-07-28 13:31 | MM ---
Reason for exam: screening (asymptomatic). Last mammogram was performed 7 years and 7 months ago. History: Family history of breast cancer in mother at age 62. Taking hormonal contraceptives for 15 years beginning at age 21. Physical Findings: A clinical breast exam by your physician is recommended on an annual basis and results should be correlated with mammographic findings. MG Screening Mammo w CAD Bilateral CC and MLO view(s) were taken. No prior studies available for comparison. The breast tissue is extremely dense which could obscure a lesion on mammography. There is no discrete abnormality. ASSESSMENT: Negative, BI-RAD 1 RECOMMENDATION: Routine screening mammogram of both breasts in 1 year.
== END | disposition home or self-care (01) ==
LOC: RADMAMWWP 16:18
PROVIDERS: ATTEND Family Medicine
DX: Z12.31 Encounter for screening mammogram for malignant neoplasm of breast (principal)
CPT/HCPCS: 77067

== ENCOUNTER → 2023-06-02 | Outpatient (CLI) | payer BC ==
--- NOTE | 2023-06-03 21:06 | MM ---
Reason for Exam: Screening (asymptomatic). Last mammogram was performed 2 year(s) and 10 month(s) ago. Patient History: Menarche at age 13. First Full-Term at age 30. Postmenopausal. Currently using Hormonal Contraceptives, beginning at age 21 for 15 years. Mother had breast cancer, age 62. Risk Values: Zo 5 year model risk: 2.0%. NCI Lifetime model risk: 16.6%. Prior Study Comparison: 09/18/2007 Bilateral Screening Mammogram, [facility]. 12/31/2012 Bilateral Screening Mammogram, [facility]. 07/26/2020 Bilateral Screening Mammogram, [facility]. Tissue Density: The breast tissue is heterogeneously dense. This may lower the sensitivity of mammography. Findings: Analyzed By CAD. There is no suspicious group of microcalcifications or new suspicious mass in either breast. Overall Assessment: Negative, BI-RAD 1 Management: Screening Mammogram of both breasts in 1 year. . Patient should continue monthly self-breast exams. A clinical breast exam by your physician is recommended on an annual basis. This exam should not preclude additional follow-up of suspicious palpable abnormalities. Note on Zo scores and lifetime risk: 1. A Zo score greater than 3% is considered moderate risk. If this is the case, consider specialist referral to assess eligibility for a risk reducing agent. 2. If overall lifetime risk for the development of breast cancer is 20% or higher, the patient may qualify for future screening with alternating mammogram and breast MRI. Electronically signed and approved by: Geovanna Gayle M.D. Radiologist
== END | disposition home or self-care (01) ==
LOC: RADMAMWWP 16:53
PROVIDERS: ATTEND Family Medicine
DX: Z12.31 Encounter for screening mammogram for malignant neoplasm of breast (principal); Z78.0 Asymptomatic menopausal state; Z80.3 Family history of malignant neoplasm of breast
CPT/HCPCS: 77067

== ENCOUNTER → 2024-06-04 | Outpatient (CLI) | payer BC ==
--- NOTE | 2024-06-05 00:06 | BD ---
EXAMINATION TYPE: Axial Bone Density DATE OF EXAM: 06/04/2024 CLINICAL HISTORY: 53 years old Female. ICD-10 CODE: Z78.0 ASYMPTOMATIC MENOPAUSAL STA , Additional History: Height: 66 Weight: 133.4 FRAX RISK QUESTIONS: Alcohol (3 or more units per day): no Family History (Parent hip fracture): no Glucocorticoids (More than 3mos): no (Ex: prednisone, prednisolone, methylprednisolone, dexamethasone, and hydrocortisone). History of Fracture in Adulthood: no Secondary Osteoporosis: 1. Type 1 Diabetes: no 2. Hyperthyroidism: no 3. Menopause before 45: yes 4. Malnutrition: no 5. Chronic liver disease: no Rheumatoid Arthritis: no Current Tobacco Use: no RISK FACTORS HISTORY OF: Hip Fracture (Right/Left): no Spine Fracture: no History of Wrist Fracture: no Surgery to Spine/Hip(right/left)/Wrist (right/left): no MEDICATIONS: Thyroid Medications: Levothyroxine How Long: past 15 years Osteoporosis Medications: no EXAM MEASUREMENTS: Bone mineral densitometry was performed using the HTP System. Bone mineral density as measured about the Lumbar spine is: ----- L1-L4(G/cm2): 0.923 T Score Values are as follows: ----- L1: -1.9 ----- L2: -2.3 ----- L3: -2.3 ----- L4: -2.3 ----- L1-L4: -2.1 Z Score Values are as follows: ----- L1: -1.1 ----- L2: -1.5 ----- L3: -1.5 ----- L4: -1.5 ----- L1-L4: -1.4 Baseline Study Bone mineral density about the R hip (g/cm2): 0.724 Bone mineral density about the L hip (g/cm2): 0.696 T Score values are as follows: -----R Neck: -2.4 -----L Neck: -1.8 -----R Total: -2.5 -----L Total: -2.0 Z Score values are as follows: -----R Neck: -1.4 -----L Neck: -0.9 -----R Total: -1.8 -----L Total: -1.4 Baseline Study FRAX%s: The graph provided illustrates a 7.1% chance for a major osteoporotic fx and a 1.4% chance fo r the hips probability for fx in 10 years time. IMPRESSION: Osteopenia (T Score between -2.5 and -1). There is slightly increased risk of fracture and the patient may be considered for treatment. Re-Screen 2-5 years. NOTE: T-SCORE=SD OF THE YOUNG ADULT MEAN. [facility], , 06/05/2024 12:04 AM
--- NOTE | 2024-06-06 00:55 | MM ---
Reason for Exam: Screening (asymptomatic). Last screening mammogram was performed 12 month(s) ago. Patient History: Menarche at age 13. First Full-Term at age 30. Postmenopausal. Currently using Hormonal Contraceptives, beginning at age 21 for 15 years. Mother had breast cancer, age 62. Risk Values: Zo 5 year model risk: 2.1%. NCI Lifetime model risk: 16.3%. Prior Study Comparison: 12/31/2012 Bilateral Screening Mammogram, [facility]. 07/26/2020 Bilateral Screening Mammogram, [facility]. 06/02/2023 Bilateral MG screening mammo w CAD, [facility]. Tissue Density: The breasts are heterogeneously dense, which may obscure small masses. Findings: Analyzed By CAD. The pattern is symmetrical. No significant interval change is evident No suspicious groups of microcalcifications, spiculated or lobular masses, architectural distortion or other secondary signs of malignancy are mammographically apparent. Overall Assessment: Benign, BI-RAD 2 Management: Screening Mammogram of both breasts in 1 year. A negative mammogram report should not preclude additional follow up of suspicious palpable abnormalities. Patient should continue monthly self breast exam. A clinical breast exam by your physician is recommended on an annual basis and results should be correlated with mammographic findings. Note on Zo scores and lifetime risk: 1. A Zo score greater than 3% is considered moderate risk. If this is the case, consider specialist referral to assess eligibility for a risk reducing agent. 2. If overall lifetime risk for the development of breast cancer is 20% or higher, the patient may qualify for future screening with alternating mammogram and breast MRI. [facility], , 06/06/2024 12:52 AM. Electronically signed and approved by: Marcellus Tinajero D.O. Radiologis
== END | disposition home or self-care (01) ==
LOC: RADMAMWWP 06:52
PROVIDERS: ATTEND Family Medicine
DX: Z12.31 Encounter for screening mammogram for malignant neoplasm of breast (principal); R92.333 Mammographic heterogeneous density, bilateral breasts; Z78.0 Asymptomatic menopausal state; Z80.3 Family history of malignant neoplasm of breast
CPT/HCPCS: 77067; 77080